=== PATIENT | female | born 2000 ===

== ENCOUNTER 2024-04-17 10:30 | Emergency (ER) | payer MEDICAID ==
[~2024-04-17] VITALS: Ht 165.1 cm; Wt 66.0 kg
[2024-04-17 10:38] VITALS: O2SAT 100
[2024-04-17 11:36] LABS: BASOPHILS % 1.1 % (0.0-2.0); HEMATOCRIT. 37.1 % (36.0-48.0); HEMOGLOBIN. 11.9 g/dL (12.0-16.0); LYMPHOCYTES % 33.4 % (20.0-50.0); MEAN CORPUSCULAR HEMOGLOBIN 26.6 pg (28.0-32.0); MEAN CORPUSCULAR VOLUME 83.1 fL (81.0-99.0); MEAN PLATELET VOLUME 8.2 fl (7.4-10.4); MONOCYTES % 4.1 % (2.0-8.0); NEUTROPHILS % 60.4 % (40.0-76.0); PLATELET 362 x1000/uL (130-400); RED BLOOD CELL COUNT 4.46 mill/uL (4.2-5.4); RED CELL DISTRIBUTION WIDTH 16.5 % (11.6-14.6); WHITE BLOOD COUNT 5.4 x1000/uL (4.5-11.0)
[2024-04-17 11:42] LABS: CHLORIDE 107 mEq/L (98-107); POTASSIUM 3.6 mEq/L (3.5-5.1); SODIUM 139 mEq/L (136-145)
[2024-04-17 11:43] LABS: CARBON DIOXIDE 21 mEq/L (21-32)
[2024-04-17 11:44] LABS: CALCIUM 9.4 mg/dL (8.7-10.4)
[2024-04-17 11:48] LABS: CREATININE 0.7 mg/dL (0.6-1.0); GLUCOSE 96 mg/dL (70-105)
[2024-04-17 11:49] LABS: UREA NITROGEN BLOOD 7 mg/dL (9-23)
[2024-04-17 11:50] LABS: ALANINE AMINOTRANSFERASE < 7 IU/L (10-49); ALBUMIN 4.6 g/dL (3.2-4.8); ASPARTATE AMINOTRANSFERASE 14 IU/L (<34)
[2024-04-17 11:51] LABS: BILIRUBIN DIRECT 0.1 mg/dL (<=3.0); BILIRUBIN TOTAL 0.5 mg/dL (0.1-1.0); PROTEIN TOTAL 8.3 g/dL (6.0-8.3)
[2024-04-17 12:18] LABS: HCG SCREEN NEGATIVE
[2024-04-17] MEDS ORDERED: ONDA-239 PO (13:18)
[2024-04-17] MEDS: ONDANSETRON 4MG ODT PO ONE (13:56)
[2024-04-17 14:05] VITALS: BP 111/60; PULSE 77; RESP 18; TEMP 36.5; O2SAT 100
== END 2024-04-17 13:56 | disposition home or self-care (01) ==
LOC: ER 10:30
DX: A08.4 Viral intestinal infection, unspecified (principal); F41.9 Anxiety disorder, unspecified
CPT/HCPCS: 99283; 80076; 80048; 84703; 83690; 85025; 36415; Q0162